=== PATIENT | male | born 1995 | race Hispanic/Latino ===

== ENCOUNTER 2018-07-05 09:03 | Outpatient (CLI) | payer OTHER ==
--- NOTE | 2018-07-05 10:45 | RAD ---
LEFT SHOULDER THREE VIEWS: History: Bony problems in the posterior shoulder. FINDINGS/IMPRESSION: No bony abnormalities are seen. POS: [facility]
== END 2018-07-05 09:04 | disposition home or self-care (01) ==
LOC: BICRAD 09:03
PROVIDERS: ATTEND Nurse Practitioner Family
DX: M89.8X9 Other specified disorders of bone, unspecified site (principal)

== ENCOUNTER 2021-03-01 20:15 | Emergency (ER) | payer SELFPAY ==
[2021-03-01] MEDS ORDERED: Fluorescein Opthalmic Strip ONE (21:29)
[2021-03-01] MEDS ORDERED: Proparacaine 0.5% Opth 15 ML BOT ONE (21:29)
== END 2021-03-01 22:50 | disposition home or self-care (01) ==
LOC: ERS 20:15
DX: S05.01XA Injury of conjunctiva and corneal abrasion without foreign body, right eye, initial encounter (principal)
CPT/HCPCS: 99283